=== PATIENT | female | born 1945 | race Hispanic/Latino ===

== ENCOUNTER 2016-12-18 11:04 | Observation (INO) | payer MEDICARE, MEDICAID ==
[2016-12-18 12:18] LABS: ADD MANUAL DIFF? NO
[2016-12-18 12:26] LABS: BASO # 0.01 K/mm3 (0.0-2.0); BASO % 0.1 % (0.0-3.0); EOS # 0.1 (0.0-0.7); GRAN # 6.31 (1.4-6.5); GRAN % 72.2 % (50.0-68.0); HEMATOCRIT 44.2 % (36.0-48.0); LYMPH # 1.2 (1.2-3.4); LYMPH % 14.2 % (22.0-35.0); MEAN CELL VOLUME 92.1 fL (80.0-105.0); MEAN CORPUSCULAR HEMOGLOBIN 31.5 pg (25.0-35.0); MEAN CORPUSCULAR HGB CONC 34.2 g/dl (31.0-37.0); MONO # 1.1 (0.1-0.6); MONO % 12.5 % (1.0-6.0); PLATELET COUNT 190 10^3/uL (120.0-450.0); RED CELL DISTRIBUTION WIDTH 12.2 % (11.5-14.5); WHITE BLOOD COUNT 8.7 10^3/ul (4.5-11.0)
[2016-12-18 12:30] LABS: ALB/GLOB RATIO 1.4 (1.1-1.8); ALKALINE PHOSPHATASE 70 U/L (38-133); ALT/SGPT 27 U/L (7-56); AST/SGOT 29 U/L (15-39); BILIRUBIN,TOTAL 0.9 mg/dL (0.2-1.3); BLOOD UREA NITROGEN 16 mg/dL (7-21); CARBON DIOXIDE 32 mmol/L (21-33); CHLORIDE 100 mmol/L (98-107); GFR AFRICAN-AMERICAN > 60; GLUCOSE,RANDOM 113 mg/dL (70-110); POTASSIUM 3.7 mmol/L (3.6-5.0); SODIUM 141 mmol/L (132-148)
[2016-12-18 12:42] LABS: TROPONIN I < 0.01 ng/mL
--- NOTE | 2016-12-18 13:07 | ED PDOC ---
Arrival/HPI - General Chief Complaint: Syncope Time Seen by Provider: 12/18/16 11:47 Historian: Patient - History of Present Illness Narrative History of Present Illness (Text): 12/18/16 12:41 A 71 year old female, whose past medical history includes hypertension, COPD, and stents, presents to the emergency department after a syncopal episode. Patient reports she was at her dentist's office getting an xray when she suddenly began to feel dizzy and passed out. The next the patient can recall is being on the floor. Patient was told she hit her head head. She denies any fever , chest pain, dizziness, or any other complaints at this time. Patient mentions she has passed of several times over the past few months and never sought medical attention. PMD: Dr. Brown 12/19/16 11:26 Time/Duration: Prior to Arrival Symptom Onset: Sudden Symptom Course: Other Quality: Other Activities at Onset: Rest Context: Home Past Medical History - Provider Review Nursing Documentation Reviewed: Yes - Infectious Disease Hx of Infectious Diseases: None - Tetanus Immunization Tetanus Immunization: Unknown - Cardiac Hx Pacemaker: No - Pulmonary Hx Respiratory Disorders: Yes Hx Bronchitis: Yes Hx Chronic Obstructive Pulmonary Disease (COPD): Yes Hx Emphysema: Yes Hx Pneumonia: Yes - Neurological Hx Paralysis: No - HEENT Hx HEENT Disorder: Yes (tonsillectomy, eyeglasses) Hx Deafness: Yes - Renal Hx Renal Disorder: No - Endocrine/Metabolic Hx Endocrine Disorders: No - Hematological/Oncological Hx Blood Transfusions: Yes Hx Blood Transfusion Reaction: No - Integumentary Hx Dermatological Disorder: No - Musculoskeletal/Rheumatological Hx Musculoskeletal Disorders: Yes (cervical myelopathy,connective tissue disorder) - Gastrointestinal Hx Gastrointestinal Disorders: No - Genitourinary/Gynecological Hx Genitourinary Disorders: No - Psychiatric Hx Emotional Abuse: No Hx Physical Abuse: No Hx Substance Use: No - Surgical History Hx Coronary Stent: Yes (1 stent 05/2013, 08/22/13) Hx Orthopedic Surgery: Yes (bilat knee replacement, 2right 1 left) Other/Comment: BRAIN SURGERY, mole removed from chest - Anesthesia Hx Anesthesia: No Hx Anesthesia Reactions: No Hx Malignant Hyperthermia: No - Suicidal Assessment Feels Threatened In Home Enviroment: No Family/Social History - Physician Review Nursing Documentation Reviewed: Yes Family/Social History: Unknown Family HX Smoking Status: Never Smoked Hx Alcohol Use: No Hx Substance Use: No Hx Substance Use Treatment: No Allergies/Home Meds Allergies/Adverse Reactions: Allergies carbamazepine [From Tegretol] Allergy (Verified 12/18/16 20:01) ANAPHYLAXIS Home Medications: Home Meds Medication Instructions Recorded Confirmed Donepezil [Aricept] 10 mg PO HS 02/03/12 12/18/16 Memantine [Namenda] 28 mg PO HS 02/03/12 12/18/16 Tiotropium [Spiriva] 18 mcg IH DAILY 02/03/12 12/18/16 Clopidogrel [Plavix] 75 mg PO DAILY 06/15/13 12/18/16 Hydroxychloroquine Sulfate 200 mg PO DAILY 10/28/13 12/18/16 [Plaquenil] Aspirin [Ecotrin] 81 mg PO HS 09/09/15 12/18/16 Budesonide/Formoterol Fumarate 1 puff INH DAILY 10/11/15 12/18/16 [Symbicort 160-4.5 Mcg Inhaler] Furosemide 20 mg PO DAILY 11/04/15 12/18/16 Cholecalciferol (Vitamin D3) 4,000 unit PO DAILY 02/17/16 12/18/16 [Vitamin D3] Metoprolol Tartrate [Lopressor] 25 mg PO BID 02/17/16 12/18/16 Pravastatin Sodium [Pravachol] 20 mg PO DAILY 02/17/16 12/18/16 Magnesium Amino Acid Chelate 300 mg PO HS 08/07/16 12/18/16 [Magnesium] Montelukast [Singulair] 10 mg PO HS 12/18/16 12/18/16 Review of Systems - Physician Review All systems were reviewed & negative as marked: Yes - Review of Systems Constitutional: absent: Fevers Respiratory: absent: SOB Cardiovascular: Syncope. absent: Chest Pain Neurological: Dizziness (prior to fall but no longer) Physical Exam Vital Signs Reviewed: Yes Vital Signs Temp Pulse Resp BP Pulse Ox 12/18/16 15:02 76 18 118/65 96 12/18/16 13:09 66 18 121/67 95 12/18/16 12:03 69 18 122/71 95 12/18/16 11:05 98.5 F 71 18 124/76 94 L Temperature: Afebrile Blood Pressure: Normal Pulse: Regular Respiratory Rate: Normal Appearance: Positive for: Well-Appearing, Non-Toxic, Comfortable Pain Distress: None Mental Status: Positive for: Alert and Oriented X 3 Finger Stick Blood Glucose: 121 - Systems Exam Head: Present: Atraumatic, Normocephalic Pupils: Present: PERRL Extroacular Muscles: Present: EOMI Conjunctiva: Present: Normal Mouth: Present: Moist Mucous Membranes Neck: Present: Normal Range of Motion Respiratory/Chest: Present: Clear to Auscultation, Good Air Exchange. No: Respiratory Distress, Accessory Muscle Use Cardiovascular: Present: Regular Rate and Rhythm, Normal S1, S2. No: Murmurs Abdomen: Present: Normal Bowel Sounds. No: Tenderness, Distention, Peritoneal Signs Back: Present: Normal Inspection Upper Extremity: Present: Normal Inspection. No: Cyanosis, Edema Lower Extremity: Present: Normal Inspection. No: Edema Neurological: Present: GCS=15, CN II-XII Intact, Speech Normal Skin: Present: Warm, Dry, Normal Color. No: Rashes Psychiatric: Present: Alert, Oriented x 3, Normal Insight, Normal Concentration Medical Decision Making ED Course and Treatment: 12/18/16 12:41 Impression: A 71 year old female status post a syncopal episode. Differential Diagnosis include but are not limited to: ACS vs. intracranial abnormalities vs. vasovagal Plan: -- EKG -- Head CT -- Chest X-ray -- Labs -- Urinalysis -- Reassess and disposition Prior Visits: Notes and results from previous visits were reviewed. The patient last presented to the emergency department on 02/17/16 for evaluation of abdominal pain. Progress Notes: EKG: Ordered, reviewed, and independently interpreted the EKG. Rate : 70 BPM Rhythm : NSR Interpretation : Normal axis, PAC's 12/18/16 13:[address]: Creator : Lokesh Montiel MD COMPARISON: None available. FINDINGS: HEMORRHAGE: No intracranial hemorrhage. BRAIN: No mass effect or edema. There is chronic cystic encephalomalacia in the left medial temporal lobe. There has been a previous left temporal craniotomy. VENTRICLES: Unremarkable. No hydrocephalus. CALVARIUM: Unremarkable. PARANASAL SINUSES: Unremarkable as visualized. No significant inflammatory changes. MASTOID AIR CELLS: Unremarkable as visualized. No inflammatory changes. OTHER FINDINGS: There is severe vascular tortuosity especially of the basilar artery. IMPRESSION: Chronic cystic encephalomalacia in the left temporal lobe. No acute intracranial findings 12/18/16 13:20 Chest X-ray: Creator : Lokesh Montiel MD COMPARISON: 07/23/2016 FINDINGS: LUNGS: No active pulmonary disease. PLEURA: No significant pleural effusion identified, no pneumothorax apparent. CARDIOVASCULAR: Normal. OSSEOUS STRUCTURES: No significant abnormalities. VISUALIZED UPPER ABDOMEN: Moderate hiatal hernia OTHER FINDINGS: None. IMPRESSION: No active disease. 12/18/16 14:[address] Fletcher, who is aware and agrees with the plan to place the patient in Telemetry for observation for syncope. I have discussed the results and plan with the patient, who expresses understanding. Patient given the opportunity to ask question, all questions were answered and there is agreement with the plan to be admitted to the hospital. - Lab Interpretations Lab Results: 12/18/16 12:10 12/18/16 12:10 Lab Results 12/18/16 12:10: Sodium 141, Potassium 3.7, Chloride 100, Carbon Dioxide 32, Anion Gap 13, BUN 16, Creatinine 0.7, Est GFR ( Amer) > 60, Est GFR (Non- Af Amer) > 60, Random Glucose 113 H, Calcium 10.0, Total Bilirubin 0.9, AST 29, ALT 27, Alkaline Phosphatase 70, Troponin I < 0.01, Total Protein 7.0, Albumin 4.2, Globulin 2.9, Albumin/Globulin Ratio 1.4 12/18/16 12:10: WBC 8.7 D, RBC 4.80, Hgb 15.1, Hct 44.2, MCV 92.1, MCH 31.5, MCHC 34.2, RDW 12.2, Plt Count 190, MPV 10.0, Gran % 72.2 H, Lymph % (Auto) 14.2 L, Keith % (Auto) 12.5 H, Eos % (Auto) 1.0 L, Baso % (Auto) 0.1, Gran # 6.31 , Lymph # 1.2, Keith # 1.1 H, Eos # 0.1, Baso # 0.01 12/18/16 10:30: Free T4 1.23, Thyroxine (T4) 10.5, Total T3 1.26, TSH 3rd Generation 1.25 I have reviewed the lab results: Yes - RAD Interpretation Radiology Orders: 12/18/16 11:48 HEAD W/O CONTRAST [CT] Stat CHEST PORTABLE [RAD] Stat - Medication Orders Current Medication Orders: Albuterol/Ipratropium (Duoneb 3 Mg/0.5 Mg (3 Ml) Ud) 3 ml IH [id number] [facility] Last Admin: 12/19/16 09:32 Dose: Not Given Non-Admin Reason: Patient in Radiology Aspirin (Ecotrin) 81 mg PO DAILY [facility] Last Admin: 12/19/16 09:08 Dose: 81 mg Atorvastatin Calcium (Lipitor) 10 mg PO DIN [facility] Last Admin: 12/18/16 19:28 Dose: Clopidogrel Bisulfate (Plavix) 75 mg PO DAILY [facility] Last Admin: 12/19/16 09:09 Dose: 75 mg Donepezil HCl (Aricept) 10 mg PO HS [facility] Last Admin: 12/18/16 21:17 Dose: 10 mg Hydroxychloroquine Sulfate (Plaquenil) 200 mg PO DAILY [facility] Last Admin: 12/19/16 09:08 Dose: 200 mg Memantine (Namenda) 10 mg PO DAILY [facility] Last Admin: 12/19/16 09:08 Dose: 10 mg Metoprolol Tartrate (Lopressor) 25 mg PO BID [facility] Last Admin: 12/19/16 09:08 Dose: 25 mg Montelukast Sodium (Singulair) 10 mg PO HS [facility] Last Admin: 12/18/16 21:17 Dose: 10 mg Naproxen (Anaprox Ds) 550 mg PO BID PRN PRN Reason: Pain, Mild (1-3) Last Admin: 12/18/16 18:49 Dose: 550 mg Pantoprazole Sodium (Protonix Ec Tab) 40 mg PO 0630 [facility] Last Admin: 12/19/16 05:37 Dose: 40 mg Tiotropium [place] (Spiriva) 18 mcg IH DAILY [facility] Last Admin: 12/19/16 09:09 Dose: 18 mcg Discontinued Medications Naproxen (Anaprox Ds) 550 mg PO STAT STA Stop: 12/18/16 23:41 Last Admin: 12/18/16 23:46 Dose: 550 mg Pneumococcal Polyvalent Vaccine (Pneumovax 23 Vaccine) 0.5 ml IM .ONCE ONE Stop: 12/18/16 21:31 - Scribe Statement The provider has reviewed the documentation as recorded by the Jaclyn Amaya Provider Scribe Attestation: All medical record entries made by the Scribe were at my direction and personally dictated by me. I have reviewed the chart and agree that the record accurately reflects my personal performance of the history, physical exam, medical decision making, and the department course for this patient. I have also personally directed, reviewed, and agree with the discharge instructions and disposition. Disposition/Present on Arrival - Present on Arrival Any Indicators Present on Arrival: No History of DVT/PE: No History of Uncontrolled Diabetes: No Urinary Catheter: No History of Decub. Ulcer: No History Surgical Site Infection Following: None - Disposition Have Diagnosis and Disposition been Completed?: Yes Diagnosis: Syncope Disposition: HOSPITALIZED Disposition Time: 14:35 Patient Plan: Telemetry Patient Problems: Current Active Problems Problem Status Onset Syncope Acute Condition: STABLE
--- NOTE | 2016-12-18 13:14 | CT ---
PROCEDURE: CT HEAD WITHOUT CONTRAST. HISTORY: syncope COMPARISON: None available. TECHNIQUE: Axial computed tomography images were obtained through the head/brain without intravenous contrast. Radiation dose: Total exam DLP = 688 mGy-cm. This CT exam was performed using one or more of the following dose reduction techniques: Automated exposure control, adjustment of the mA and/or kV according to patient size, and/or use of iterative reconstruction technique. FINDINGS: HEMORRHAGE: No intracranial hemorrhage. BRAIN: No mass effect or edema. There is chronic cystic encephalomalacia in the left medial temporal lobe. There has been a previous left temporal craniotomy. VENTRICLES: Unremarkable. No hydrocephalus. CALVARIUM: Unremarkable. PARANASAL SINUSES: Unremarkable as visualized. No significant inflammatory changes. MASTOID AIR CELLS: Unremarkable as visualized. No inflammatory changes. OTHER FINDINGS: There is severe vascular tortuosity especially of the basilar artery. IMPRESSION: Chronic cystic encephalomalacia in the left temporal lobe. No acute intracranial findings
--- NOTE | 2016-12-18 13:20 | RAD ---
HISTORY: syncope COMPARISON: 07/23/2016 FINDINGS: LUNGS: No active pulmonary disease. PLEURA: No significant pleural effusion identified, no pneumothorax apparent. CARDIOVASCULAR: Normal. OSSEOUS STRUCTURES: No significant abnormalities. VISUALIZED UPPER ABDOMEN: Moderate hiatal hernia OTHER FINDINGS: None. IMPRESSION: No active disease.
[2016-12-18 14:20] LABS: FREE T4 1.23 ng/dL (0.78-2.19); T4 10.5 ug/dL (5.5-11.0)
[2016-12-18 14:33] LABS: T3 1.26 ng/mL (0.97-1.69); THYROID STIMULATING HORMONE 1.25 mIU/mL (0.46-4.68)
--- NOTE | 2016-12-18 15:14 | CARD ---
APPROVED REPORT EKG Measurement Heart [id number] MI [id number] <Conclusion> Sinus rhythm with premature atrial complexes Otherwise normal ECG
[2016-12-18] MEDS: Naproxen 550 mg Tab PO PRN (18:49)
[2016-12-18] MEDS: Albuterol-Ipratrop 3 mg / 0.5 (3 ml) UD IH SCH (20:22)
[2016-12-18 21:20] LABS: URINE BILIRUBIN NEGATIVE (NEGATIVE); URINE BLOOD LARGE (NEGATIVE); URINE GLUCOSE (UA) NEGATIVE (NEGATIVE); URINE KETONE 15 mg/dL (NEGATIVE); URINE LEUKOCYTE ESTERASE SMALL Leu/uL (NEGATIVE); URINE PROTEIN NEGATIVE mg/dL (<30 mg/dL); URINE UROBILINOGEN 0.2 E.U./dL (<1 E.U./dL)
[2016-12-18 21:22] LABS: URINE APPEARANCE SL CLOUDY (CLEAR); URINE COLOR YELLOW (YELLOW)
[2016-12-18 21:29] LABS: URINE BACTERIA FEW (NEG); URINE EPITHELIAL CELLS 0 - 2 /hpf (0-5); URINE RBC 15 - 20 /hpf (0-2)
[2016-12-18 21:30] VITALS: BMI 30.2
[2016-12-18] MEDS ORDERED: Pneumococcal 23-Valent Vaccine IM ONE (21:30)
--- NOTE | 2016-12-18 22:15 | HP ---
HISTORY OF PRESENT ILLNESS: The patient is a 71-year-old patient of Dr. Brown. She was brought to Emergency Room because when she passed out in dentist's office the patient's family states that she was complaining of jaw pain. For that reason, she went to see a dentist and when she got up to get x -ray done, she suddenly felt very dizzy and passed out. She did not feel sick prior to this episode, did not have any chest pain, no palpitation. No history of fever or chills. No history of nausea o r vomiting, no history of diarrhea. PAST MEDICAL HISTORY: Significant for: 1. Hypertension. 2. COPD. 3. History of coronary artery disease, status post angioplasty. 4. History of lupus. ALLERGIES: TEGRETOL, GETS ANAPHYLACTIC REACTION. MEDICATIONS AT HOME: 1. She is on Aricept 10 mg daily. 2. Namenda 28 mg daily, 3. Spiriva 18 mcg daily. 4. Plavix 75 daily. 5. Plaquenil 200 mg daily. 6. Aspirin 81 daily. 7. Advair. 8. Symbicort 160/4.5. 9. Lasix 20 mg daily. 10. Metoprolol 25 twice a day. 11. Pravachol 20 mg daily. 12. Singulair 10 mg daily. SOCIAL HISTORY: She is single. She lives by herself. Family is around. Denies smoking, drinking o r alcohol abuse. REVIEW OF SYSTEMS: Complained of feeling weak and slight headache, otherwise feeling well and compla ining of cough. PHYSICAL EXAMINATION: VITAL SIGNS: She is afebrile, pulse 71, respirations 18, blood pressure 124/76. LUNGS: Bilateral fair airflow, no rhonchi or crackle. HEART: S1, S2 audible. ABDOMEN: Soft, nontender, no rebound, no guarding. NEUROLOGIC: She is awake and alert, able to communicate. No focal deficit. LABORATORY DATA: WBC is 8.7, hemoglobin 15, hematocrit 44, platelet of 90. Chemistry: Sodium 141, potassium 3.7, chloride 100, CO2 32, BUN 16, creatinine 0.7, blood sugar 113. LFTs are within normal limits. CT scan of the brain is unremarkable. X-ray of chest is negative. CT scan of the brain sh ows chronic cystic encephalomalacia in the left temporal lobe. X-ray chest is unremarkable. EKG reba ws normal sinus rhythm with premature atrial contraction. ASSESSMENT: 1. Syncope. Differential is between cardiac and neurogenic causes, rule out vasovagal. 2. Hypertension. 3. Coronary artery disease. 4. History of lupus. 5. Hyperlipidemia. 6. Coronary artery disease, status post angioplasty. PLAN: We will start her on Naprosyn. We will continue her usual medication. Continue her on aspiri n 81 daily. We will order a syncope workup including carotid Doppler, MRI of the brain and Dr. Rojas to evaluate the patient. Will encourage physical therapy. Once workup is completed, we will make di miranda plan. Wilman Fletcher MD cc: [phone] TT: 12/18/2016 22:14:10 jn
[2016-12-18] MEDS ORDERED: Naproxen 550 mg Tab PO STA (23:40)
--- NOTE | 2016-12-18 23:40 | CP.PCM.PN ---
Subjective - Date & Time of Evaluation Date of Evaluation: 12/18/16 Time of Evaluation: 23:26 - Subjective Subjective: Patient was seen at bed side. She complained of jaw pain.Has no other complaints now. Denies chest pain, sob, nausea. Receved Naprosyn at 6.49 PM which helped her as per her. This 71 year old white woman was admitted after she had a syncopal episode at dentist's office. She has PMH of COPD,CAD,HTN, Lupus, angioplasty. Objective - Vital Signs/Intake and Output Vital Signs (last 24 hours): Temp Pulse Resp BP Pulse Ox 99.3 F 75 18 135/69 96 12/18/16 21:10 12/18/16 21:10 12/18/16 21:10 12/18/16 21:10 12/18/16 20:14 - Medications Medications: Current Medications Albuterol/Ipratropium (Duoneb 3 Mg/0.5 Mg (3 Ml) Ud) 3 ml IH [id number] [facility] Last Admin: 12/18/16 20:22 Dose: 3 ml Aspirin (Ecotrin) 81 mg PO DAILY [facility] Atorvastatin Calcium (Lipitor) 10 mg PO DIN [facility] Last Admin: 12/18/16 19:28 Dose: Not Given Clopidogrel Bisulfate (Plavix) 75 mg PO DAILY [facility] Donepezil HCl (Aricept) 10 mg PO HS [facility] Last Admin: 12/18/16 21:17 Dose: 10 mg Hydroxychloroquine Sulfate (Plaquenil) 200 mg PO DAILY [facility] Memantine (Namenda) 10 mg PO DAILY [facility] Metoprolol Tartrate (Lopressor) 25 mg PO BID [facility] Last Admin: 12/18/16 18:48 Dose: 25 mg Montelukast Sodium (Singulair) 10 mg PO HS [facility] Last Admin: 12/18/16 21:17 Dose: 10 mg Naproxen (Anaprox Ds) 550 mg PO BID PRN PRN Reason: Pain, Mild (1-3) Last Admin: 12/18/16 18:49 Dose: 550 mg Pantoprazole Sodium (Protonix Ec Tab) 40 mg PO 0630 [facility] Tiotropium [place] (Spiriva) 18 mcg IH DAILY [facility] - Constitutional Appears: Well, No Acute Distress - Head Exam Head Exam: ATRAUMATIC, NORMAL INSPECTION, NORMOCEPHALIC - Eye Exam Eye Exam: Normal appearance - ENT Exam ENT Exam: Normal External Ear Exam - Neck Exam Neck Exam: Normal Inspection - Respiratory Exam Respiratory Exam: NORMAL BREATHING PATTERN - Cardiovascular Exam Cardiovascular Exam: absent: JVD - GI/Abdominal Exam GI & Abdominal Exam: absent: Distended - Rectal Exam Rectal Exam: Deferred - Extremities Exam Extremities Exam: Normal Inspection - Back Exam Back Exam: NORMAL INSPECTION - Neurological Exam Neurological Exam: Alert, Oriented x3 - Psychiatric Exam Psychiatric exam: Normal Affect, Normal Mood - Skin Skin Exam: Normal Color Assessment and Plan - Assessment and Plan (Free Text) Assessment: Jaw pain. COPD. HTN. LUPUS. Plan: Naprosyn 550 mg PO now. Continue present management. Nurse calls in few minutes stating that she complains of both legs pain and there is no physical findings. Will wait, will give hot compress and monitor.
[2016-12-19] MEDS: Albuterol-Ipratrop 3 mg / 0.5 (3 ml) UD IH SCH ×4 (01:52→20:05)
[2016-12-19] MEDS: Pantoprazole 40 mg EC Tab PO SCH (05:37)
[2016-12-19] MEDS: Tiotropium 18 mcg Cap For Inhalation IH SCH (09:09)
--- NOTE | 2016-12-19 10:46 | MRI ---
PROCEDURE: MRI BRAIN WITHOUT CONTRAST HISTORY: syncopal episode COMPARISON: 04/07/2016 TECHNIQUE: Multiplanar, multisequence MR images of the brain were obtained without intravenous contrast enhancement. FINDINGS: HEMORRHAGE: None DWI: No evidence of an acute or early subacute infarction. BRAIN PARENCHYMA: No mass effect or edema. There is chronic cystic encephalomalacia in the left temporal lobe. Previous craniotomy VENTRICLES: Unremarkable. No hydrocephalus. CRANIUM: Unremarkable. ORBITS: Grossly unremarkable. PARANASAL SINUSES/MASTOIDS: Clear VASCULAR SYSTEM: Skull base flow voids intact. OTHER FINDINGS: None. IMPRESSION: Encephalomalacia in the left temporal lobe. No acute intracranial finding
--- NOTE | 2016-12-19 12:02 | DS ---
The patient is a 71-year-old, seen and examined, lying in bed, she seems to be comfortable. No nause a, vomiting or diarrhea. She states she had developed pain. For that, she went to see a dentist. W hen she was standing up there without any warning she felt very dizzy and lightheaded and blacked out for a few seconds. She was brought to the ER. By the time she got to the ER, she was doing well. PHYSICAL EXAMINATION: GENERAL: She is awake and alert, communicative. VITAL SIGNS: Afebrile, pulse 70, respirations 20, and blood pressure 115/65. LUNGS: Bilateral fair airflow, no rhonchi or crackle. HEART: S1, S2 audible. ABDOMEN: Soft, nontender, no rebound, no guarding. NEUROLOGIC: The patient is awake and alert, communicative. LABORATORY EXAM: Troponin is 0.01. Thyroid profile is within normal limits. Urinalysis showed larg e blood, small leukocyte, 15 - 20 RBCs. She had MRI of the brain done that shows encephalomalacia in the left temporal lobe. No intracranial finding. She had carotid Doppler study done, results are n ot available. ASSESSMENT: 1. Status post syncope, etiology unclear. Probably vasovagal. 2. History of coronary artery disease. 3. Hypertension. 4. Morbid obesity. 5. History of chronic obstructive pulmonary disease. 6. Status post angioplasty. 7. History of lupus. PLAN: The patient is clinically stable. She is ambulating without any symptoms. She has an appoint ment with statistical modeler next week. After she is being seen by Dr. Rojas, the patient can be discharged and she can continue all her medication as she was taking prior to admission. Will follow up bhumi Alexandra and awaiting cardiology input and then she can be discharged. Wilman Fletcher MD cc: [phone] TT: 12/19/2016 12:01:22 jn
--- NOTE | 2016-12-19 14:40 | US ---
PROCEDURE: Bilateral carotid artery duplex ultrasound HISTORY: Bilateral Carotid stenosis syncope PHYSICIAN(S): Severino Escobedo MD. TECHNIQUE: Duplex sonography and color-flow Doppler were used to evaluate the carotid bifurcations and limited segments of the vertebral arteries bilaterally. FINDINGS: The exam is limited by tortuous vessels. There is mild smooth heterogeneous plaque noted at the carotid bifurcations bilaterally. The peak systolic velocity in the proximal right internal carotid artery is 105 cm/sec. This corresponds to a 20 to 39% proximal right ICA stenosis. Normal systolic velocities are noted in the proximal right external carotid artery. There is antegrade flow in the right vertebral artery. The peak systolic velocity in the proximal left internal carotid artery is 130 cm/sec. The Doppler a angle may be inappropriate. This corresponds to a 20 to 39% proximal left ICA stenosis. Normal systolic velocities are noted in the proximal left external carotid artery. There is antegrade flow in the left vertebral artery. IMPRESSION: 1. Bilateral 20-39% proximal ICA stenoses. 2. Antegrade flow in both vertebral arteries.
--- NOTE | 2016-12-19 17:09 | CON ---
DATE: 12/19/2016 REASON FOR CONSULTATION: Syncope. HISTORY OF PRESENT ILLNESS: The patient is a 71-year-old white female who has a history of chronic o bstructive lung disease, history of coronary artery disease status post coronary artery stenting twic e in the past, most recent one was at least 2 years ago, one at [facility] and one at [facility]. The patient presents because of a syncopal episode. The patient went to her dent ist because of jaw pain and was standing to have the x-ray for the jaw, she felt dizzy and collapsed to the floor. The patient then sat on the chair and EMS was activated. The patient does not recall experiencing palpitation. When patient asked about history of headache she states she has chronic he adache that got worse with her jaw problem. The patient denies retrosternal chest pain and does not recall experiencing palpitation. SOCIAL HISTORY: The patient is a nonsmoker. MEDICATIONS: Anaprox 550 mg twice a day, Aricept 10 mg once a day, aspirin 81 mg once a day, Lipitor 10 mg once a day, Lopressor 25 mg twice a day, Namenda 10 mg once a day, Plaquenil 200 mg once a day , Plavix 75 mg once a day, Protonix 40 mg p.o. once a day, Singulair 10 mg once a day, Spiriva 18 mcg inhalation daily. REVIEW OF SYSTEMS: No nausea or vomiting. No fever or chills. No slurring of speech and no blurry vision. PHYSICAL EXAMINATION: GENERAL: The patient is an elderly female who does not appear to be in any distress. VITAL SIGNS: Blood pressure 125/68, heart rate 64, respirations 18, temperature 98.8. HEENT: Normocephalic, atraumatic. NECK: No JVD. CHEST: Bilateral dry crepitations at the basally. HEART: S1, S2 regular. ABDOMEN: Soft. EXTREMITIES: No edema. LABORATORY DATA: SMA-7 is within normal limits except for glucose of 115. One set of troponin is ne gative. Thyroid profile is within normal limits. CBC: WBC 8.7, hemoglobin and hematocrit 15.1/44.2 , platelet count 190,000. Chest x-ray was unremarkable. EKG reveals sinus rhythm with APCs. 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 No acute intracranial finding. Brain MRI: in the left temporal lobe. ASSESSMENT: 1. Syncopal episode. 2. Coronary artery disease status post coronary intervention twice, a little more than 2 years ago. 3. Hypertension. RECOMMENDATIONS: Continue current aspirin 81 mg once a day, Lipitor 10 mg once a day, Lopressor 25 m g twice a day. Followup carotid ultrasound report. The most recent cardiac catheterization report i n October last year revealed 80% stenosis of the mid left anterior descending artery prior to the st ent, patent stent in the left anterior descending artery and right coronary artery and at that time t here was arrangement for PCI at [facility], which really contraindicates with the eber palmer's story when she mentioned to me that that was more than 2 years ago and it clearly this was don e in October of last year. In view this, no new cardiac workup other than the echo and continuation of the aspirin, Plavix, Lipitor and Lopressor therapy. Nestor Watt MD cc: [id number] TT: 12/19/2016 17:08:55 Confirmation # [id number] Dictation # [id number] mn
[2016-12-19 17:23] VITALS: RESP 18
[2016-12-20] MEDS: Naproxen 550 mg Tab PO PRN (00:01)
[2016-12-20] MEDS: Albuterol-Ipratrop 3 mg / 0.5 (3 ml) UD IH SCH ×3 (02:50→13:03)
[2016-12-20] MEDS: Pantoprazole 40 mg EC Tab PO SCH (06:10)
[2016-12-20] MEDS: Tiotropium 18 mcg Cap For Inhalation IH SCH (09:37)
[2016-12-20 11:17] VITALS: BP 122/80; PULSE 93
[2016-12-20 14:32] VITALS: TEMP 98.2; O2SAT 97
== END 2016-12-20 15:12 | disposition home or self-care (01) ==
LOC: ED 11:04 → ERH 15:07 → 2RSO 16:18
PROVIDERS: ADMIT Internal Medicine; ATTEND Internal Medicine
DX: R55 Syncope and collapse (principal); I25.10 Atherosclerotic heart disease of native coronary artery without angina pectoris; I10 Essential (primary) hypertension; J44.9 Chronic obstructive pulmonary disease, unspecified; L94.9 Localized connective tissue disorder, unspecified; G95.89 Other specified diseases of spinal cord; E66.01 Morbid (severe) obesity due to excess calories; E78.5 Hyperlipidemia, unspecified; Z68.30 Body mass index [BMI] 30.0-30.9, adult; Z95.5 Presence of coronary angioplasty implant and graft; Z79.82 Long term (current) use of aspirin
CPT/HCPCS: 70450; 70551; 71010; 80053; 81001; 84439; 84443; 84480; 84484; 85025; 87086; 93005; 93880; 94640; 97161; 99285; G0378; G8978; G8979

== ENCOUNTER 2017-09-04 09:51 | Emergency (ER) | payer MEDICARE, MEDICAID ==
[2017-09-04 09:51] VITALS: BMI 30.2
[2017-09-04 10:10] VITALS: RESP 18; O2SAT 97
[2017-09-04] MEDS ORDERED: Promethazine/Cod 6.25mg-10mg/5ml Syr UD PO STA (10:18)
--- NOTE | 2017-09-04 12:24 | ED PDOC ---
Arrival/HPI - General Chief Complaint: Flu-like Symptoms Time Seen by Provider: 09/04/17 10:11 Historian: Patient - History of Present Illness Narrative History of Present Illness (Text): 09/04/17 12:21 72yo female with PMHx of COPD who present with 3days history of cough, generalized body ache, nasal congestion and fever x 3days. States she took Motrin at 0500am. she denies wheezing, SOB, diaphoresis, dizziness, nausea, vomiting, abdominal pain, sick contact, any other complaint. Past Medical History - Provider Review Nursing Documentation Reviewed: Yes - Infectious Disease Hx of Infectious Diseases: None - Tetanus Immunization Tetanus Immunization: Unknown - Cardiac Hx Cardiac Disorders: Yes Hx Hypertension: Yes - Pulmonary Hx Chronic Obstructive Pulmonary Disease (COPD): Yes - Neurological Hx Paralysis: No - HEENT Hx HEENT Disorder: Yes (tonsillectomy, eyeglasses) Hx Deafness: Yes - Renal Hx Renal Disorder: No - Endocrine/Metabolic Hx Endocrine Disorders: No - Hematological/Oncological Hx Blood Transfusions: Yes Hx Blood Transfusion Reaction: No - Integumentary Hx Dermatological Disorder: No - Musculoskeletal/Rheumatological Hx Musculoskeletal Disorders: Yes (cervical myelopathy,connective tissue disorder) - Gastrointestinal Hx Gastrointestinal Disorders: No - Genitourinary/Gynecological Hx Genitourinary Disorders: No - Psychiatric Hx Emotional Abuse: No Hx Physical Abuse: No Hx Substance Use: No - Surgical History Hx Coronary Stent: Yes (1 stent 05/2013, 08/22/13) Hx Orthopedic Surgery: Yes (bilat knee replacement, 2right 1 left) Other/Comment: BRAIN SURGERY, mole removed from chest - Anesthesia Hx Anesthesia: No Hx Anesthesia Reactions: No Hx Malignant Hyperthermia: No - Suicidal Assessment Feels Threatened In Home Enviroment: No Family/Social History - Physician Review Nursing Documentation Reviewed: Yes Family/Social History: Unknown Family HX Smoking Status: Never Smoked Hx Alcohol Use: No Hx Substance Use: No Hx Substance Use Treatment: No Allergies/Home Meds Allergies/Adverse Reactions: Allergies carbamazepine [From Tegretol] Allergy (Verified 09/04/17 10:10) ANAPHYLAXIS Review of Systems - Physician Review All systems were reviewed & negative as marked: Yes - Review of Systems Constitutional: Fatigue, Fevers Eyes: Normal ENT: Normal Respiratory: Cough. absent: SOB, Sputum, Wheezing Cardiovascular: Normal Gastrointestinal: Normal Genitourinary Female: Normal Musculoskeletal: Normal Skin: Normal Neurological: Normal Endocrine: Normal Hemo/Lymphatic: Normal Psychiatric: Normal Physical Exam Vital Signs Reviewed: Yes Vital Signs Temp Pulse Resp BP Pulse Ox 09/04/17 12:48 98 F 80 18 120/78 97 09/04/17 10:06 97.9 F 78 18 119/78 97 09/04/17 09:51 97.9 F 78 18 119/78 97 Temperature: Afebrile Blood Pressure: Normal Pulse: Regular Respiratory Rate: Normal Appearance: Positive for: Well-Appearing, Non-Toxic, Comfortable Pain Distress: None Mental Status: Positive for: Alert and Oriented X 3 - Systems Exam Head: Present: Atraumatic, Normocephalic Pupils: Present: PERRL Extroacular Muscles: Present: EOMI Conjunctiva: Present: Normal Mouth: Present: Moist Mucous Membranes Neck: Present: Normal Range of Motion Respiratory/Chest: Present: Clear to Auscultation, Good Air Exchange. No: Respiratory Distress, Accessory Muscle Use, Wheezes, Decreased Breath Sounds, Rales, Retracting, Rhonchi Cardiovascular: Present: Regular Rate and Rhythm, Normal S1, S2. No: Murmurs Abdomen: Present: Normal Bowel Sounds. No: Tenderness, Distention, Peritoneal Signs Back: Present: Normal Inspection Upper Extremity: Present: Normal Inspection. No: Cyanosis, Edema Lower Extremity: Present: Normal Inspection. No: Edema Neurological: Present: GCS=15, CN II-XII Intact, Speech Normal Skin: Present: Warm, Dry, Normal Color. No: Rashes Psychiatric: Present: Alert, Oriented x 3, Normal Insight, Normal Concentration Medical Decision Making ED Course and Treatment: 09/04/17 16:54 PT presented for stated history. Afebrile and hemodynamically stable. Lung was CTA b/l. Rapid flu was negative CXR NAD Pt however have a flu like history with history of respiratory disease and at 72yrs she was treated and DC home with Tamiflu and antitussive. Referred to her PMD. TRT ED for any new symptoms. - Lab Interpretations Lab Results: Lab Results 09/04/17 10:00: Influenza Typ A,B (EIA) Negative for flu a/b - RAD Interpretation Radiology Orders: 09/04/17 10:17 CHEST TWO VIEWS (PA/LAT) [RAD] Stat - Medication Orders Current Medication Orders: Discontinued Medications Oseltamivir Phosphate (Tamiflu Cap) 75 mg PO ONCE STA PRN Reason: Protocol Stop: 09/04/17 10:19 Last Admin: 09/04/17 10:29 Dose: 75 mg Promethazine HCl/Codeine (Phenergan/Codeine Oral Syrup) 5 ml PO STAT STA Stop: 09/04/17 10:19 Last Admin: 09/04/17 10:30 Dose: 5 ml Disposition/Present on Arrival - Present on Arrival Any Indicators Present on Arrival: No History of DVT/PE: No History of Uncontrolled Diabetes: No Urinary Catheter: No History of Decub. Ulcer: No History Surgical Site Infection Following: None - Disposition Have Diagnosis and Disposition been Completed?: Yes Diagnosis: Flu-like symptoms Disposition: HOME/ ROUTINE Disposition Time: 12:40 Patient Plan: Discharge Condition: STABLE Discharge Instructions (ExitCare): Viral Syndrome (ED) Additional Instructions: Take medication and drink plenty of fluid Follow up with your doctor Return to ED for nay new or worsening symptoms Prescriptions: Benzonatate [Tessalon Perle] 100 mg PO TID #20 capsule Oseltamivir Phosphate [Tamiflu] 75 mg PO BID #10 capsule Referrals: Mekhi Brown MD [Family Provider] - Follow up with primary Forms: [employer] (Wallisian)
--- NOTE | 2017-09-04 12:35 | RAD ---
HISTORY: cough COMPARISON: 12/18/2016 TECHNIQUE: Chest PA and lateral FINDINGS: LUNGS: No active pulmonary disease. PLEURA: No significant pleural effusion identified. No pneumothorax apparent. CARDIOVASCULAR: No radiographic findings to suggest acute or significant cardiovascular disease. OSSEOUS STRUCTURES: No significant abnormalities. VISUALIZED UPPER ABDOMEN: Normal. OTHER FINDINGS: Partial eventration of the left hemidiaphragm IMPRESSION: No active disease. No significant interval change compared to the prior examination(s).
[2017-09-04 12:50] VITALS: BP 120/78; PULSE 80; TEMP 98
== END 2017-09-04 12:48 | disposition home or self-care (01) ==
LOC: ED 09:51
DX: J11.1 Influenza due to unidentified influenza virus with other respiratory manifestations (principal)

== ENCOUNTER 2018-08-11 11:13 | Outpatient (CLI) | payer MEDICARE, MEDICAID | END 2018-08-11 11:14 | disposition home or self-care (01) | LOC: RAD 11:13 ==